=== PATIENT | female | born 1990 | race African-American/Black ===

== ENCOUNTER 2017-12-10 03:13 | Emergency (ER) | payer BC, OTHER ==
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
[2017-12-10 03:33] VITALS: BP 124/73; PULSE 110; TEMP 98.8; BMI 22.6
[2017-12-10] MEDS ORDERED: AMOX TR/POT CLAV 875MG/125MG TABLETS (FP) PO ONE (03:35)
[2017-12-10] MEDS ORDERED: TETANUS AND DIPHTHERIA TOXOID 0.5 ML DISP.SYRIN IM ONE (03:35)
[2017-12-10] MEDS ORDERED: AMOX TR/POT CLAV 875MG/125MG TABLETS (FP) ONE (03:43)
[2017-12-10] MEDS ORDERED: LIDOCAINE HCL 2% (20ML MULTI-DOSE VIAL) NR ONE (04:00)
== END 2017-12-10 04:44 | disposition home or self-care (01) ==
LOC: JER 03:13
PROC: 3E0234Z Introduction of Serum, Toxoid and Vaccine into Muscle, Percutaneous Approach (ICD-10-PCS; principal; 2017-12-10)
DX: S61.051A Open bite of right thumb without damage to nail, initial encounter (principal); Y04.1XXA Assault by human bite, initial encounter; Y93.89 Activity, other specified; Y92.89 Other specified places as the place of occurrence of the external cause
CPT/HCPCS: 99281-25

== ENCOUNTER 2018-04-13 04:09 | Emergency (ER) | payer BC ==
[2018-04-13 04:33] VITALS: BMI 25.0
--- NOTE | 2018-04-13 04:46 | PDOC ---
History of Present Illness - General History Source: Patient - History of Present Illness Initial Comments: 04/13/18 05:05 The patient is a 27 year old female, with a significant past medical history of opiate dependence, seizure (1 episode 2 years ago due to withdrawal in the past) , who presents to the emergency department with, withdrawal symptoms for 3 days. As per patient, she quit opiates 3 days ago and has since been experiencing nausea, vomiting, diarrhea, and diffuse body aches. She reports associated headache and dizziness. She reports similar symptoms in the past when trying to quit opiates. She is worried of a repeat seizure due to withdrawal. She denies recent constipation. She denies recent dysuria, frequency, urgency or hematuria. She denies recent chest pain or shortness of breath. Past surgical history: Hip surgery. Social history: Opiate depence. Primary Care Physician: Dr. Jeff Bowden <Tanvi Davis - Last Filed: 04/13/18 05:10> - General History Source: Patient <Yohan Phillip - Last Filed: 04/13/18 06:58> - General Chief Complaint: Nausea/Vomiting Stated Complaint: VOMITING/STOMACH PAIN Time Seen by Provider: 04/13/18 04:11 Past History <Tanvi Davis - Last Filed: 04/13/18 05:10> - Past Medical History Anemia: No Asthma: No Cardiac Disorders: No CVA: No Diabetes: No GI Disorders: No Disorders: No HTN: No Hypercholesterolemia: No Psychiatric Problems: Yes (ANXIETY/DEPRESSION) Seizures: No - Surgical History Orthopedic Surgery: Yes (RIGHT HIP SX DUE TO PLAY INJURY IN 1999) - Suicide/Smoking/Psychosocial Hx Smoking Status: Yes Smoking History: Current every day smoker Have you smoked in the past 12 months: No Number of Cigarettes Smoked Daily: 5 Information on smoking cessation initiated: No 'Breaking Loose' booklet given: 09/14/16 Hx Alcohol Use: No Drug/Substance Use Hx: Yes (opiates) Substance Use Type: None Hx Substance Use Treatment: Yes (left tx at [facility] in [place] in May) <Yohan Phillip - Last Filed: 04/13/18 06:58> - Past Medical History Allergies/Adverse Reactions: Allergies Allergy/AdvReac Type Severity Reaction Status Date / Time dextromethorphan Hbr Allergy Swelling Verified 04/13/18 04:31 [From NyQuil] doxylamine [From NyQuil] Allergy Swelling Verified 04/13/18 04:31 pseudoephedrine HCl Allergy Swelling Verified 04/13/18 04:31 [From NyQuil] Home Medications: Ambulatory Orders Ondansetron [Zofran *Odt*] 4 mg SL TID #30 od.tablet 04/13/18 Review of Systems - Review of Systems Able to Perform ROS?: Yes Comments:: 04/13/18 05:05 CONSTITUTIONAL: Present: Diffuse body aches. EYES: Absent: visual changes ENT: Absent: ear pain, no sore throat CARDIOVASCULAR: Absent: chest pain, no palpitations RESPIRATORY: Absent: cough, no SOB GI: Present: Nausea. Vomiting. Diarrhea. Absent: abdominal pain, no constipation GENITOURINARY: Absent: dysuria, no frequency, no hematuria MUSKULOSKELETAL: Absent: back pain, no arthralgia, no myalgia SKIN: Absent: rash NEURO: Present: headache, dizziness. All Other Systems: Reviewed and Negative <Tanvi Davis - Last Filed: 04/13/18 05:10> *Physical Exam - Vital Signs Last Vital Signs Temp Pulse Resp BP Pulse Ox 98.3 F 75 20 115/72 100 04/13/18 04:31 04/13/18 04:31 04/13/18 04:31 04/13/18 04:31 04/13/18 04:31 - Physical Exam Comments: 04/13/18 05:05 +GENERAL: Piloerection exam. Well developed, well nourished. Awake and alert. No acute distress. HEENT: Normocephalic, atraumatic. PERRLA, EOMI. No conjunctival pallor. Sclera are non- icteric. Moist mucous membranes. Oropharynx is clear. NECK: Supple. Full ROM. No JVD. Carotid pulses 2+ and symmetric, without bruits. No thyromegaly. No lymphadenopathy. CARDIOVASCULAR: Regular rate and rhythm. No murmurs, rubs, or gallops. Distal pulses are 2+ and symmetric. PULMONARY: No evidence of respiratory distress. Lungs clear to auscultation bilaterally. No wheezing, rales or rhonchi. +ABDOMINAL: Diffuse tenderness. Soft. Non-distended. No rebound or guarding. No organomegaly. Normoactive bowel sounds. MUSCULOSKELETAL Normal range of motion at all joints. No bony deformities or tenderness. No CVA tenderness. EXTREMITIES: No cyanosis. No clubbing. No edema. No calf tenderness. SKIN: Warm and dry. Normal capillary refill. No rashes. No jaundice. NEUROLOGICAL: Alert, awake, appropriate. Cranial nerves 2-12 intact. No deficits to light touch and temperature in face, upper extremities and lower extremities. No motor deficits in the in face, upper extremities and lower extremities. Normoreflexic in the upper and lower extremities. Normal speech. Toes are down- going bilaterally. Gait is normal without ataxia. PSYCHIATRIC: Cooperative. Good eye contact. Appropriate mood and affect. <Tanvi Davis - Last Filed: 04/13/18 05:10> - Vital Signs Last Vital Signs Temp Pulse Resp BP Pulse Ox 98.3 F 75 20 115/72 100 04/13/18 04:31 04/13/18 04:31 04/13/18 04:31 04/13/18 04:31 04/13/18 04:31 <Yohan Phillip - Last Filed: 04/13/18 06:58> ED Treatment Course - LABORATORY CBC & Chemistry Diagram: 04/13/18 05:22 04/13/18 05:16 <Yohan Phillip - Last Filed: 04/13/18 06:58> *DC/Admit/Observation/Transfer - Attestations Scribe Attestion: 04/13/18 05:06 Documentation prepared by Tanvi Davis, acting as medical record librarians teacher for Yohan Phillip DO. <Tanvi Davis - Last Filed: 04/13/18 05:10> - Discharge Dispostion Decision to Admit order: No <Yohan Phillip - Last Filed: 04/13/18 06:58> Diagnosis at time of Disposition: Nausea & vomiting Qualifiers: Vomiting type: unspecified Vomiting Intractability: unspecified Qualified Code( s): R11.2 - Nausea with vomiting, unspecified - Discharge Dispostion Disposition: HOME Condition at time of disposition: Stable - Prescriptions Prescriptions: Ondansetron [Zofran *Odt*] 4 mg SL TID #30 od.tablet - Referrals Referrals: Jeff Bowden [Primary Care Provider] - - Patient Instructions Printed Discharge Instructions: DI for Nausea -- Adult, DI for Vomiting -- Adult Additional Instructions: drink plenty of fluids. Use medication as needed. Return if any problems. - Post Discharge Activity Forms/Work/School Notes: Back to Work
[2018-04-13] MEDS ORDERED: ONDANSETRON 4 MG/2 ML VIAL IVPUSH STA (04:51)
[2018-04-13] MEDS ORDERED: PANTOPRAZOLE SODIUM 40 MG in SODIUM CHLORIDE 100 ML IVPB ONE (04:51)
[2018-04-13] MEDS ORDERED: SODIUM CHLORIDE 1,000 ML IV STA ×2 (04:51→06:20)
[2018-04-13] MEDS ORDERED: PANTOPRAZOLE SODIUM 40 MG/100 ML BAG IVPB ONE (04:58)
[2018-04-13] MEDS ORDERED: ONDANSETRON 4 MG/2 ML VIAL ONE (04:58)
[2018-04-13 05:28] LABS: BASO % 0.4 % (0-2.0); EOS % 0.6 % (0-4.5); HEMATOCRIT 37.1 % (32.4-45.2); HEMOGLOBIN 12.7 GM/dL (10.7-15.3); LYMPH % 41.8 % (8-40); MCH 32.7 pg (25.7-33.7); MCHC 34.1 g/dl (32.0-36.0); MEAN CELL VOLUME 95.7 fl (80-96); MEAN PLT VOLUME 7.7 fl (7.5-11.1); MONO % 8.1 % (3.8-10.2); NEUT % 49.1 % (42.8-82.8); PLATELET COUNT 239 K/MM3 (134-434); RBC 3.88 M/mm3 (3.60-5.2); RDW 12.6 % (11.6-15.6); WHITE BLOOD COUNT 6.9 K/mm3 (4.0-10.0)
[2018-04-13 05:40] LABS: INR 1.01 (0.82-1.09); PROTHROMBIN TIME (PATIENT) 11.4 SEC (9.7-13.0)
[2018-04-13 05:49] LABS: ALBUMIN 3.4 g/dl (3.4-5.0); ALK PHOS 65 U/L (45-117); ANION GAP 7 (8-16); BILIRUBIN,TOTAL 0.5 mg/dL (0.2-1.0); BLOOD UREA NITROGEN 12 mg/dL (7-18); CALCIUM 8.7 mg/dL (8.5-10.1); CHLORIDE 109 mmol/L (98-107); CO2 26 mmol/L (21-32); CREATININE 0.5 mg/dL (0.55-1.02); GLUCOSE,RANDOM 96 mg/dL (74-106); LIPASE 229 U/L (73-393); MAGNESIUM 2.1 mg/dL (1.8-2.4); POTASSIUM 3.9 mmol/L (3.5-5.1); SGOT/AST 10 U/L (15-37); SGPT/ALT 22 U/L (12-78); SODIUM 142 mmol/L (136-145); TOT PROT 6.5 g/dl (6.4-8.2)
[2018-04-13] MEDS ORDERED: METHADONE HCL 10 MG TABLET PO ONE (06:13)
[2018-04-13] MEDS ORDERED: METHADONE HCL 10 MG TABLET ONE (06:14)
[2018-04-13 07:02] VITALS: BP 145/98; PULSE 72; TEMP 98.4
== END 2018-04-13 08:41 | disposition home or self-care (01) ==
LOC: JER 04:09
PROC: 3E0337Z Introduction of Electrolytic and Water Balance Substance into Peripheral Vein, Percutaneous Approach (ICD-10-PCS; principal; 2018-04-13)
PROC: 3E033GC Introduction of Other Therapeutic Substance into Peripheral Vein, Percutaneous Approach (ICD-10-PCS; 2018-04-13)
DX: R11.2 Nausea with vomiting, unspecified (principal); F11.10 Opioid abuse, uncomplicated; F41.8 Other specified anxiety disorders; F17.210 Nicotine dependence, cigarettes, uncomplicated; Z86.69 Personal history of other diseases of the nervous system and sense organs
CPT/HCPCS: 36415; 80053; 83690; 83735; 84703; 85025; 85610; 99283-25; J7030

== ENCOUNTER 2018-07-07 03:52 | Emergency (ER) | payer BC ==
[2018-07-07] MEDS ORDERED: METOCLOPRAMIDE HCL INJECTION 10 MG/2 ML VIAL IVPUSH ONE (04:15)
[2018-07-07] MEDS ORDERED: SODIUM CHLORIDE 1,000 ML IV STA (04:15)
--- NOTE | 2018-07-07 04:15 | PDOC ---
History of Present Illness - General Stated Complaint: OPIATES WITHDRAWAL Time Seen by Provider: 07/07/18 04:12 History Source: Patient Exam Limitations: No Limitations - History of Present Illness Initial Comments: 07/07/18 04:03 Best Contact: PCP:Dr. Guille Bowden Pmhx: 2016: sz "from heroin" Pshx: right hip dysplasia sx @ age 9 Allergies: Nyquil/swelling FH:0 Social Hx: Cigarettes/ 4-5 cigarettes a day x12 years Alcohol/ social Drugs/heroin, cocaine, marijuana LMP:Jun 10, 2018 28-year-old female presents to the emergency department complaining of nausea 3 hours. Patient states she last noted heroin followed by cocaine and smoked marijuana 9 hours ago. Patient denies headache, dizziness, lightheadedness, fever/chills, general malaise, pain, neck pain/stiffness, back pains, chest pain , shortness of breath, abdominal pains, flank pains, urinary symptoms. Patient states she has relapsed last evening since 1 month ago. Patient reports she first started using opiates, cocaine and marijuana 4 years ago. Patient has been hospitalized in February of this year/2017 at for [facility] and was clean for approximately 4 months. Patient states she refuses to go to [facility]. She only wants something for her nausea. Patient denies diarrhea, vomiting, nausea, sweating, restlessness, anxiety, cramping abdominal pains, insomnia or tremor Pt refuses anything except anti nausea medication. Pt refuses transfer to [facility] for detox. 07/07/18 04:58 Pt refuses to stay in the ER after the reglan 10mg iv. Pt states she wishes to be d/c and will sign an ama. Pt's mother states she will accompany her daughter and take care of her. Pt and her mother was informed pt needs to come to the ER for for any cp, sob, abd pain, n/v or any concerns. Past History - Past Medical History Allergies/Adverse Reactions: Allergies Allergy/AdvReac Type Severity Reaction Status Date / Time dextromethorphan Hbr Allergy Swelling Verified 07/07/18 04:42 [From NyQuil] doxylamine [From NyQuil] Allergy Swelling Verified 07/07/18 04:42 pseudoephedrine HCl Allergy Swelling Verified 07/07/18 04:42 [From [facility]] Home Medications: Ambulatory Orders NK [No Known Home Medication] 07/07/18 Anemia: No Asthma: No Cardiac Disorders: No CVA: No Diabetes: No GI Disorders: No Disorders: No HTN: No Hypercholesterolemia: No Psychiatric Problems: Yes (ANXIETY/DEPRESSION) Seizures: No - Surgical History Orthopedic Surgery: Yes (RIGHT HIP SX DUE TO PLAY INJURY IN 1999) - Suicide/Smoking/Psychosocial Hx Smoking Status: Yes Smoking History: Current every day smoker Have you smoked in the past 12 months: No Number of Cigarettes Smoked Daily: 5 'Breaking Loose' booklet given: 09/14/16 Hx Alcohol Use: No Drug/Substance Use Hx: Yes (opiates) Substance Use Type: None Hx Substance Use Treatment: Yes (left tx at [facility] in [place] in May) Review of Systems - Review of Systems Able to Perform ROS?: Yes Comments:: 07/07/18 04:41 CONSTITUTIONAL: Absent: fever, chills, diaphoresis, generalized weakness, malaise, loss of appetite HEENT: Absent: rhinorrhea, nasal congestion, throat pain, throat swelling, difficulty swallowing, mouth swelling, ear pain, eye pain, visual Changes CARDIOVASCULAR: Absent: chest pain, loss of consciousness, palpitations, irregular heart rate, peripheral edema RESPIRATORY: Absent: cough, shortness of breath, dyspnea with exertion, orthopnea, wheezing, stridor, hemoptysis GASTROINTESTINAL: +nausea Absent: abdominal pain, abdominal distension, omiting, diarrhea, constipation, melena, hematochezia GENITOURINARY: Absent: dysuria, frequency, urgency, hesitancy, hematuria, flank pain, genital pain MUSCULOSKELETAL: Absent: myalgia, arthralgia, joint swelling SKIN: Absent: rash, itching, pallor HEMATOLOGIC/IMMUNOLOGIC: Absent: easy bleeding, easy bruising, lymphadenopathy, frequent infections ENDOCRINE: Absent: unexplained weight gain, unexplained weight loss, heat intolerance, cold intolerance NEUROLOGIC: Absent: headache, focal weakness or paresthesias, dizziness, unsteady gait, seizure, mental status changes, bladder or bowel incontinence PSYCHIATRIC: Absent: anxiety, depression, suicidal or homicidal ideation, hallucinations. GENERAL: Well developed, well nourished. Awake and alert. No acute distress. HEENT: Normocephalic, atraumatic. PERRLA, EOMI. No conjunctival pallor. Sclera are non- icteric. Moist mucous membranes. Oropharynx is clear. NECK: Supple. Full ROM. No JVD. Carotid pulses 2+ and symmetric, without bruits. No thyromegaly. No lymphadenopathy. CARDIOVASCULAR: Regular rate and rhythm. No murmurs, rubs, or gallops. Distal pulses are 2+ and symmetric. PULMONARY: No evidence of respiratory distress. Lungs clear to auscultation bilaterally. No wheezing, rales or rhonchi. ABDOMINAL: Soft. Non-tender. Non-distended. No rebound or guarding. No organomegaly. Normoactive bowel sounds. MUSCULOSKELETAL Normal range of motion at all joints. No bony deformities or tenderness. No CVA tenderness. EXTREMITIES: No cyanosis. No clubbing. No edema. No calf tenderness. SKIN: Warm and dry. Normal capillary refill. No rashes. No jaundice. NEUROLOGICAL: Alert, awake, appropriate. Cranial nerves 2-12 intact. No deficits to light touch and temperature in face, upper extremities and lower extremities. No motor deficits in the in face, upper extremities and lower extremities. Normoreflexic in the upper and lower extremities. Normal speech. Toes are down- going bilaterally. Gait is normal without ataxia. PSYCHIATRIC: Cooperative. Good eye contact. Appropriate mood and affect. Is the patient limited Mongolian proficient: No *DC/Admit/Observation/Transfer Diagnosis at time of Disposition: Heroin dependence - Discharge Dispostion Disposition: AGAINST MEDICAL ADVICE Condition at time of disposition: Fair - Referrals Referrals: Jeff Bowden [Primary Care Provider] - - Patient Instructions Additional Instructions: You signed out Against medical advice Return to the Er for chest pain, shortness of breath, abdominal pain or any concerns - Post Discharge Activity
[2018-07-07 04:43] VITALS: BP 133/90; PULSE 84; TEMP 98.3; BMI 22.6
[2018-07-07] MEDS ORDERED: METOCLOPRAMIDE HCL INJECTION 10 MG/2 ML VIAL ONE (04:54)
== END 2018-07-07 06:00 | disposition left against medical advice (07) ==
LOC: JER 03:52
PROC: 3E033GC Introduction of Other Therapeutic Substance into Peripheral Vein, Percutaneous Approach (ICD-10-PCS; principal; 2018-07-07)
DX: F11.20 Opioid dependence, uncomplicated (principal); F41.9 Anxiety disorder, unspecified; F32.9 Major depressive disorder, single episode, unspecified
CPT/HCPCS: 99281-25

== ENCOUNTER 2019-02-26 12:07 | Emergency (ER) | payer BC, OTHER ==
[2019-02-26 12:22] VITALS: BP 118/70; PULSE 78; TEMP 98.2; BMI 23.3
--- NOTE | 2019-02-26 14:34 | PDOC ---
History of Present Illness - General Chief Complaint: Pain, Acute Stated Complaint: LT. KNEE PAIN/ NUMBING TOES Time Seen by Provider: 02/26/19 14:14 Exam Limitations: No Limitations - History of Present Illness Initial Comments: 02/26/19 14:34 28 year old female with history of right hip surgery presents with pain and swelling of left knee. Patient states pain started Monday, recall accidentally hitting knee with car door. Also reports numbness in toes of the same leg. Pain exacerbated by weight bearing. Occurred: reports: other (3 days ago) Severity: Yes: moderate Lower Extremity Pain Location: left: knee Method of Injury: Yes: direct blow Modifying Factors: improves with: immobilization, pain medication Lower Ext. Injury Location - Specific Injury Location Hips: bilateral hip: no evidence of injury Legs: bilateral: normal inspection Knees: right non-tender, left soft tissue tenderness, left swelling, left pain Ankle: bilateral no evidence of injury Foot: bilateral foot no evidence of injury Extremity Pain Location - Extremity Pain Location Extremity Pain Locations: left: knee Past History - Travel Traveled outside of the country in the last 30 days: No Close contact w/someone who was outside of country & ill: No - Past Medical History Allergies/Adverse Reactions: Allergies Allergy/AdvReac Type Severity Reaction Status Date / Time dextromethorphan Hbr Allergy Swelling Verified 02/26/19 14:31 [From NyQuil] doxylamine [From NyQuil] Allergy Swelling Verified 02/26/19 14:31 pseudoephedrine HCl Allergy Swelling Verified 02/26/19 14:31 [From NyQuil] Home Medications: Ambulatory Orders Ibuprofen 600 mg PO TID #20 tablet 02/26/19 Anemia: No Asthma: No Cardiac Disorders: No CVA: No COPD: No Diabetes: No GI Disorders: No Disorders: No HTN: No Hypercholesterolemia: No Psychiatric Problems: Yes (ANXIETY/DEPRESSION) Seizures: No - Surgical History Orthopedic Surgery: Yes (RIGHT HIP SX DUE TO PLAY INJURY IN 1999) - Suicide/Smoking/Psychosocial Hx Smoking Status: Yes Smoking History: Never smoked Have you smoked in the past 12 months: No Number of Cigarettes Smoked Daily: 5 Information on smoking cessation initiated: No 'Breaking Loose' booklet given: 09/14/16 Hx Alcohol Use: No Drug/Substance Use Hx: No Substance Use Type: None Hx Substance Use Treatment: Yes (left tx at [facility] in [place]. in May) Review of Systems - Review of Systems Able to Perform ROS?: Yes Is the patient limited Kyrgyz proficient: No Constitutional: No: Chills, Fever, Weakness HEENTM: No: Nose Congestion, Throat Swelling Respiratory: No: Wheezing Cardiac (ROS): No: Lightheadedness, Palpitations ABD/GI: No: Constipated, Diarrhea : No: Burning, Hematuria Musculoskeletal: Yes: Joint Pain, Joint Swelling Integumentary: No: Bruising, Erythema Neurological: Yes: Numbness (in left toes) Psychiatric: No: Depression Endocrine: No: Increased Hunger, Increased Urine *Physical Exam - Vital Signs Last Vital Signs Temp Pulse Resp BP Pulse Ox 98.2 F 78 18 118/70 98 02/26/19 12:19 02/26/19 12:19 02/26/19 12:19 02/26/19 12:19 02/26/19 12:19 - Physical Exam General Appearance: Yes: Nourished, Appropriately Dressed HEENT: positive: INGE, Pharynx Normal Neck: positive: Supple. negative: Lymphadenopathy (R), Lymphadenopathy (L) Respiratory/Chest: positive: Lungs Clear Cardiovascular: positive: Regular Rhythm, Regular Rate Musculoskeletal: positive: Normal Inspection Extremity: positive: Normal Capillary Refill, Inflammation (of left knee ) Integumentary: positive: Normal Color Neurologic: positive: Fully Oriented Medical Decision Making - Medical Decision Making 02/26/19 14:38 28 year old with history of right hip surgery presents with left knee pain and swelling after accidentally injured by car door. knee pain -urine -xray of left knee -analgesia 02/26/19 16:34 xray negative for fracture or dislocation d/c home with brittni wrap *DC/Admit/Observation/Transfer Diagnosis at time of Disposition: Knee injury Qualifiers: Encounter type: initial encounter Laterality: left Qualified Code(s): S89.92XA - Unspecified injury of left lower leg, initial encounter - Discharge Dispostion Condition at time of disposition: Good Decision to Admit order: No - Prescriptions Prescriptions: Ibuprofen 600 mg PO TID #20 tablet - Referrals Referrals: Milan Suresh MD [Staff Physician] - 3 days - Patient Instructions Additional Instructions: Apply ice compress for 20 minutes 3 to 4 times daily Remove brittni wrap for sleeping and showering Call ortho if symptoms not resolved in one week for further evaluation - Post Discharge Activity Forms/Work/School Notes: Back to Work
== END 2019-02-26 16:49 | disposition home or self-care (01) ==
LOC: JERFT 12:07
DX: S89.82XA Other specified injuries of left lower leg, initial encounter (principal); V48.3XXA Unspecified car occupant injured in noncollision transport accident in nontraffic accident, initial encounter; Y92.488 Other paved roadways as the place of occurrence of the external cause; Y93.89 Activity, other specified; Y99.8 Other external cause status
CPT/HCPCS: 73562-TC-LT-FY; 84703; 99281-25

== ENCOUNTER 2019-11-07 15:58 | Inpatient (IN) | payer OTHER, BC ==
[2019-11-07 17:30] VITALS: BMI 21.9
--- NOTE | 2019-11-07 20:08 | HP ---
COWS - Scale Resting Pulse: 0= [place] 80 or Below Sweatin= Chills/Flushing Restless Observation: 1= Difficult to Sit Still Pupil Size: 0= Normal to Room Light Bone or Joint Aches: 2= Severe Diffuse Aches Runny Nose/ Eye Tearin= None GI Upset > 30mins: 1= Stomach Cramp Tremor Observation: 2= Slight Tremor Visible Yawning Observation: 1= 1-2x During Session Anxiety or Irritability: 2=Irritable/Anxious Goose Flesh Skin: 0=Smooth Skin COWS Score: 10 CIWA Score - Admission Criteria OASAS Guidelines: Admission for Medically Managed Detox: Requires at least one of the followin. CIWA greater than 12 2. Seizures within the past 24 hours 3. Delirium tremens within the past 24 hours 4. Hallucinations within the past 24 hours 5. Acute intervention needed for co occurring medical disorder 6. Acute intervention needed for co occurring psychiatric disorder 7. Severe withdrawal that cannot be handled at a lower level of care (continued vomiting, continued diarrhea, abnormal vital signs) requiring intravenous medication and/or fluids 8. Admitting History and Physical - Admission Chief Complaint: "I'm here for heroin detox". History of Present Illness: A 29year old female with history of heroin and cannabis use disorder who presents here today requesting for heroin detox. Pt last detox here was on 2014 to 05/30/2015 but signed AMA and went to [facility] rehab but relapsed after one and a half years due to bad friends. Pt states attempts to remain sober has failed but plans to go to rehab after discharge. History Source: Patient Limitations to Obtaining History: No Limitations - Past Medical History ...LMP: 10/12/19 Psych: Yes: Addictions, Anxiety, Depression - Smoking History Smoking history: Never smoked Have you smoked in the past 12 months: No Aproximately how many cigarettes per day: 10 - Alcohol/Substance Use Hx Alcohol Use: No History of Substance Use: reports: Cocaine, Heroin - Social History Usual Living Arrangement: Yes: Other (Lives with her mother.) Do you think of yourself as: Straight/Heterosexual ADL: Independent History of Recent Travel: No Admission ROS BHS - HPI Allergies/Adverse Reactions: Allergies Allergy/AdvReac Type Severity Reaction Status Date / Time dextromethorphan Hbr Allergy Swelling Verified 11/07/19 17:17 [From NyQuil] doxylamine [From NyQuil] Allergy Swelling Verified 11/07/19 17:17 pseudoephedrine HCl Allergy Swelling Verified 11/07/19 17:17 [From NyQuil] Exam Limitations: No Limitations - Ebola screening Have you traveled outside of the country in the last 21 days: No Have you had contact with anyone from an Ebola affected area: No Have you been sick,other than usual withdrawal symptoms: No Do you have a fever: No - Review of Systems Constitutional: Chills, Loss of Appetite, Night Sweats EENT: reports: No Symptoms Reported Respiratory: reports: No Symptoms reported Cardiac: reports: No Symptoms Reported GI: reports: Poor Appetite Musculoskeletal: reports: Back Pain, Muscle Pain Integumentary: reports: Other Neuro: reports: Headache, Tremors Endocrine: reports: No Symptoms Reported Hematology: reports: No Symptoms Reported Psychiatric: reports: Mood/Affect Appropiate, Anxious Other Systems: Reviewed and Negative Patient History - Patient Medical History Hx Anemia: No Hx Asthma: No Hx Chronic Obstructive Pulmonary Disease (COPD): No Hx Cardiac Disorders: No Hx Hypertension: No Hx Hypercholesterolemia: No HX Cerebrovascular Accident: No Hx Seizures: No Hx Diabetes: No Hx Gastrointestinal Disorders: No Hx Genitourinary Disorders: No Hx Sexually Transmitted Disorders: Yes (CHLAMYDIA HX) Hx Human Immunodeficiency Virus (HIV): No (NEGATIVE HX) Hx Hepatitis C: No Hx Depression: Yes Hx Suicide Attempt: Yes (PILLS IN 2011) - Patient Surgical History Past Surgical History: Yes Hx Orthopedic Surgery: Yes (RIGHT HIP SX DUE TO PLAY INJURY IN 1999) Anesthesia Reaction: No - PPD History Previous Implant?: Yes (pt states, she had ppd shot december,) Documented Results: Negative w/proof Date: 05/31/15 PPD to be Administered?: No - Reproductive History Patient is a Female of Child Bearing Age (11 -55 yrs old): Yes Last Menstrual Period: 10/12/19 Patient : No - Smoking Cessation Smoking history: Never smoked Have you smoked in the past 12 months: No Aproximately how many cigarettes per day: 10 Hx Chewing Tobacco Use: No Initiated information on smoking cessation: Yes 'Breaking Loose' booklet given: 11/07/19 - Substance & Tx. History Hx Alcohol Use: No Hx Substance Use: Yes Substance Use Type: Heroin Hx Substance Use Treatment: No - Substances abused Heroin Substance route: Inhalation Frequency: Daily Amount used: 5 bags Age of first use: 25 Date of last use: 11/07/19 Alcohol Substance route: Oral Frequency: No use in 30 days Amount used: 3 cups of liqour Age of first use: 14 Date of last use: 10/08/19 Admission Physical Exam [facility] - Vital Signs Vital Signs: Vital Signs - 24 hr 11/07/19 17:17 Temperature 97.6 F Pulse Rate 73 Respiratory 16 Rate Blood Pressure 118/78 - Physical General Appearance: Yes: No Apparent Distress, Tremorous, Irritable, Sweating, Anxious HEENTM: Yes: EOMI, Hearing grossly Normal, INGE, Pharynx Normal Respiratory: Yes: Chest Non-Tender, Lungs Clear, No Respiratory Distress Neck: Yes: No masses,lesions,Nodules, Trachea in good position Breast: Yes: Breast Exam Deferred Cardiology: Yes: Regular Rhythm, Regular Rate, S1, S2 Abdominal: Yes: Normal Bowel Sounds, Non Tender, Flat, Soft Genitourinary: Yes: Within Normal Limits Back: Yes: Normal Inspection Musculoskeletal: Yes: full range of Motion, Gait Steady Extremities: Yes: Normal Capillary Refill, Normal Range of Motion, Non-Tender, Tremors Neurological: Yes: Alert, Motor Strength 5/5, Normal Mood/Affect, Normal Response Integumentary: Yes: Dry, Warm Lymphatic: Yes: Within Normal Limits - Diagnostic (1) Anxiety disorder Current Visit: No Status: Chronic (2) Cannabis dependence Current Visit: No Status: Acute (3) Cocaine abuse Current Visit: No Status: Acute (4) Heroin dependence Current Visit: No Status: Acute (5) Knee injury Current Visit: No Status: Acute Qualifiers: Encounter type: initial encounter Laterality: left Qualified Code(s): S89.92XA - Unspecified injury of left lower leg, initial encounter (6) Opiate use Current Visit: No Status: Chronic (7) Opioid dependence with withdrawal Current Visit: No Status: Acute (8) Depression with anxiety Current Visit: No Status: Chronic Cleared for Admission [facility] - Detox or Rehab [facility] Level of Care: Medically Managed Detox Regimen/Protocol: Methadone Claeared for Rehab Admission: No Breathalyzer - Breathalyzer Breathalyzer: 0 Urine Drug Screen - Test Device Lot number: [id number] Expiration date: 09/07/21 - Control Is test valid?: Yes - Results Drug screen NEGATIVE: No Urine drug screen results: THC-Marijuana, GONZALES-Cocaine, MOP-Opiates, BZO- Benzodiazepines Inpatient Rehab Admission - Rehab Decision to Admit Inpatient rehab admission?: No
[2019-11-07] MEDS ORDERED: MAGNESIUM HYDROX 2400MG/30ML ORAL SUSPENSION 30 ML CUP PO PRN (20:37)
[2019-11-07] MEDS ORDERED: MAG HYDROX/AL HYDROX/SIMETH 30 ML UNIT-DOSE CUP PO PRN (20:37)
[2019-11-07] MEDS ORDERED: BISMUTH SUBSALICYLATE 524 MG/30 ML UD PO PRN (20:37)
[2019-11-07] MEDS ORDERED: guaiFENesin 200 MG/10 ML 10 ML UNIT-DOSE CUPS PO PRN (20:37)
[2019-11-07] MEDS ORDERED: PROCHLORPERAZINE MALEATE 5 MG TABLET PO PRN (20:37)
[2019-11-07] MEDS ORDERED: MENTHOL/PHENOL 1 EACH UD MM PRN (20:37)
[2019-11-07] MEDS ORDERED: MAGNESIUM CITRATE 300 ML BOTTLE PO PRN (20:37)
[2019-11-07] MEDS ORDERED: IBUPROFEN 400 MG TABLET (FP) PO PRN (20:37)
[2019-11-07] MEDS ORDERED: ACETAMINOPHEN 325 MG TABLET (FP) PO PRN ×2 (20:37)
[2019-11-07] MEDS ORDERED: METHADONE HCL 10 MG TABLET (FOR DETOX USE ONLY) PO ONE (20:46)
[2019-11-07] MEDS: THIAMINE HCL 100 MG TABLET (FP) PO SCH (21:21)
[2019-11-07] MEDS: cloNIDine HCL 0.1 MG TABLET PO PRN (21:21)
[2019-11-08] MEDS: METHOCARBAMOL 500 MG TABLET PO PRN (09:56)
[2019-11-08] MEDS: cloNIDine HCL 0.1 MG TABLET PO PRN (09:56)
[2019-11-08] MEDS: PRENATAL VITAMINS W/ FOLIC ACID TABLET (FP) PO SCH (09:56)
[2019-11-08] MEDS ORDERED: METHADONE HCL 5 MG TABLET (FOR DETOX USE ONLY) PO ONE (10:00)
[2019-11-08 10:21] LABS: HEMATOCRIT 33.4 % (32.4-45.2); HEMOGLOBIN 11.7 GM/dL (10.7-15.3); MCH 33.6 pg (25.7-33.7); MEAN PLT VOLUME 7.9 fl (7.5-11.1); PLATELET COUNT 236 K/MM3 (134-434); RBC 3.48 M/mm3 (3.60-5.2); RDW 12.5 % (11.6-15.6); WHITE BLOOD COUNT 4.3 K/mm3 (4.0-10.0)
[2019-11-08 10:28] LABS: ALBUMIN 3.3 g/dl (3.4-5.0); BILIRUBIN,TOTAL 0.5 mg/dL (0.2-1); BLOOD UREA NITROGEN 8.6 mg/dL (7-18); CREATININE 0.6 mg/dL (0.55-1.3); POTASSIUM 4.2 mmol/L (3.5-5.1); TOT PROT 6.1 g/dl (6.4-8.2)
--- NOTE | 2019-11-08 12:35 | PN ---
BHS COWS - Scale Resting Pulse: 0= [place] 80 or Below Sweatin=Flushed/Facial Moisture Restless Observation: 1= Difficult to Sit Still Pupil Size: 0= Normal to Room Light Bone or Joint Aches: 1= Mild Discomfort Runny Nose/ Eye Tearin= Nasal Congestion GI Upset > 30mins: 0= None Tremor Observation of Outstretched Hands: 2= Slight Tremor Visible Yawning Observation: 0= None Anxiety or Irritability: 2=Irritable/Anxious Goose Flesh Skin: 0=Smooth Skin COWS Score: 9 BHS Progress Note (SOAP) Subjective: Patient seen in community room watching TV. Complains of restlessness and poor sleep. Objective: 11/08/19 12:32 Vitals: BP:131/93 P:63 R:16 T:98.0 Laboratory 11/07/19 11/08/19 11/08/19 18:55 08:30 08:30 WBC 4.3 K/mm3 K/mm3 (4.0-10.0) RBC 3.48 M/mm3 L M/mm3 (3.60-5.2) Hgb 11.7 GM/dL GM/dL (10.7-15.3) Hct 33.4 % % (32.4-45.2) MCV 96.0 fl fl (80-96) MCH 33.6 pg pg (25.7-33.7) MCHC 35.0 g/dl g/dl (32.0-36.0) RDW 12.5 % % (11.6-15.6) Plt Count 236 K/MM3 K/MM3 (134-434) MPV 7.9 fl fl (7.5-11.1) Sodium 143 mmol/L mmol/L (136-145) Potassium 4.2 mmol/L mmol/L (3.5-5.1) Chloride 109 mmol/L H mmol/L (98-107) Carbon Dioxide 29 mmol/L mmol/L (21-32) Anion Gap 5 MMOL/L L MMOL/L (8-16) BUN 8.6 mg/dL mg/dL (7-18) Creatinine 0.6 mg/dL mg/dL (0.55-1.3) Est GFR (CKD-EPI)AfAm 140.77 Est GFR (CKD-EPI)NonAf 121.46 Random Glucose 80 mg/dL mg/dL (74-106) Calcium 9.0 mg/dL mg/dL (8.5-10.1) Total Bilirubin 0.5 mg/dL mg/dL (0.2-1) AST 12 U/L L U/L (15-37) ALT 25 U/L U/L (13-61) Alkaline Phosphatase 68 U/L U/L (45-117) Total Protein 6.1 g/dl L g/dl (6.4-8.2) Albumin 3.3 g/dl L g/dl (3.4-5.0) POC Urine HCG, Qual Negative Assessment: 11/08/19 12:33 1. Opioid Dependence with withdrawals 2. Abnormalities in labs noted Plan: 1. Continue methadone detox protocol. Encourage hydration 2. Labs consistent with poor nutrition and probably dehydration and vomitting from withdrawals. Dr. Carnes
--- NOTE | 2019-11-08 12:46 | EKG ---
Test Reason : Blood Pressure : / mmHG Vent. Rate : 057 BPM Atrial Rate : 057 BPM P-R Int : 164 ms QRS Dur : 080 ms QT Int : 432 ms P-R-T Axes : 053 047 051 degrees QTc Int : 420 ms SINUS BRADYCARDIA WITH SINUS ARRHYTHMIA WHEN COMPARED WITH ECG OF 24-SEP-2016 14:02, NO SIGNIFICANT CHANGE WAS FOUND Confirmed by BAUTISTA ARGUELLES MD ([id number]) on 11/08/2019 12:46:50 PM Referred By: Confirmed By:BAUTISTA ARGUELLES MD
--- NOTE | 2019-11-08 14:59 | CONSULT ---
[facility] Psychiatric Consult - Data Date of interview: 11/08/19 Admission source: [facility] Identifying data: Revisit to [facility] and admission to [address] [place] [address] for this 29 y/o AA female self-referred for detoxification treatment. MARTHA issues : heroin, cannabis, nicotine. Patient is single, no dependents, omiciled, unemployed and supported by relatives. Substance Abuse History: Discussed with patient. Details in current [facility] report as follows : Aproximately how many cigarettes per day: 10. Hx Chewing Tobacco Use: No. Initiated information on smoking cessation: Yes. 'Breaking Loose' booklet given: 11/07/19. - Substance & Tx. History. Hx Alcohol Use: No. Hx Substance Use: Yes. Substance Use Type: Heroin. Hx Substance Use Treatment: No. - Substances abused. Heroin. Substance route: Inhalation. Frequency: Daily. Amount used: 5 bags. Age of first use: 25. Date of last use: . Alcohol. Substance route: Oral. Frequency: No use in 30 days. Amount used: 3 cups of liqour. Age of first use: 14. 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 Psychiatric History: Patient is a hostile, evasive and marginally cooperative historian. Ms Lyons endorses history of two psychiatric hospitalizations ([facility] in 2001 + [facility] in 2010). Reportedly diagnosed with MDD and Anxiety disorder. Patient got prescribed citalopram + clonazepam during treatment at [facility]. She reportedly lost interest in OPD care and got lost to follow-up. No current contact with psychiatric care providers at this time. Patient admits to history of two suicide attempts via overdoses with pills. Physical/Sexual Abuse/Trauma History: Not discussed in this session. Patient not cooperative enough to allow for exploration of the domain of abuse. Additional Comment: Urine drug screen results: THC-Marijuana, GONZALES-Cocaine, MOP- Opiates, BZO-Benzodiazepines. Noted. Mental Status Exam - Mental Status Exam Alert and Oriented to: Time, Place, Person Cognitive Function: Good Patient Appearance: Disheveled Mood: Hostile, Withdrawn, Irritable Affect: Mood Congruent, Constricted Patient Behavior: Fatigued, Uncooperative (marginally cooperative) Speech Pattern: Clear, Appropriate Voice Loudness: Normal Thought Process: Goal Oriented Thought Disorder: Not Present Hallucinations: Denies Suicidal Ideation: Denies Homicidal Ideation: Denies Insight/Judgement: Poor Sleep: Fair Appetite: Good Gait/Station: Other (not observed ; interview conducted at bedside) Psychiatric Findings - Problem List ([place] 1, 2,3) (1) Opioid dependence with withdrawal Current Visit: Yes Status: Acute (2) Cannabis dependence Current Visit: Yes Status: Chronic (3) Cocaine abuse Current Visit: Yes Status: Chronic (4) Nicotine dependence Current Visit: Yes Status: Chronic (5) Substance induced mood disorder Current Visit: Yes Status: Chronic (6) Anxiety disorder Current Visit: Yes Status: Chronic Comment: By history. (7) Non-compliance Current Visit: Yes Status: Chronic - Initial Treatment Plan Initial Treatment Plan: Patient came to office to complete interview initiated at bedside. She offered apologies to MD for being " less than cooperative." Patient explained that she was fatigued, tired and somewhat sleepy. Interview is conducted in the presence of counselor's dry cleaning supervisor, Leonard Velez. Psychoeducation provided to patient. Support. Sleep hygiene principles revisited. NA meetings. MAT services discussed with patient : she declines (due to side effects from suboxone experienced in the past). Patient also declines psychotropic medications other than drugs necessary for detoxification purposes. Observation.
[2019-11-08] MEDS: THIAMINE HCL 100 MG TABLET (FP) PO SCH (22:08)
[2019-11-08] MEDS: MELATONIN 5 MG TABLETS PO PRN (22:08)
[2019-11-09] MEDS ORDERED: METHADONE HCL 10 MG TABLET (FOR DETOX USE ONLY) PO ONE (10:00)
[2019-11-09] MEDS: PRENATAL VITAMINS W/ FOLIC ACID TABLET (FP) PO SCH (10:09)
[2019-11-09] MEDS ORDERED: ONDANSETRON *ODT* 4 MG TABLET SL ONE (11:45)
--- NOTE | 2019-11-09 13:33 | PN ---
S COWS - Scale Resting Pulse: 0= [place] 80 or Below Sweatin= No chills or Flushing Restless Observation: 0= Sits Still Pupil Size: 0= Normal to Room Light Bone or Joint Aches: 2= Severe Diffuse Aches Runny Nose/ Eye Tearin= None GI Upset > 30mins: 1= Stomach Cramp Tremor Observation of Outstretched Hands: 0= None Yawning Observation: 0= None Anxiety or Irritability: 2=Irritable/Anxious Goose Flesh Skin: 0=Smooth Skin COWS Score: 5 BHS Progress Note (SOAP) Subjective: c/o n/v x1 and mild withdrawal symptoms. Objective: 11/09/19 13:29 Vital Signs 11/09/19 11/09/19 06:57 08:58 Temperature 98.2 F 97.6 F Pulse Rate 69 61 Respiratory 16 16 Rate Blood Pressure 136/95 135/92 Laboratory Last Values WBC 4.3 K/mm3 (4.0-10.0) 11/08/19 08:30 RBC 3.48 M/mm3 (3.60-5.2) L 11/08/19 08:30 Hgb 11.7 GM/dL (10.7-15.3) 11/08/19 08:30 Hct 33.4 % (32.4-45.2) 11/08/19 08:30 MCV 96.0 fl (80-96) 11/08/19 08:30 MCH 33.6 pg (25.7-33.7) 11/08/19 08:30 MCHC 35.0 g/dl (32.0-36.0) 11/08/19 08:30 RDW 12.5 % (11.6-15.6) 11/08/19 08:30 Plt Count 236 K/MM3 (134-434) 11/08/19 08:30 MPV 7.9 fl (7.5-11.1) 11/08/19 08:30 Sodium 143 mmol/L (136-145) 11/08/19 08:30 Potassium 4.2 mmol/L (3.5-5.1) 11/08/19 08:30 Chloride 109 mmol/L (98-107) H 11/08/19 08:30 Carbon Dioxide 29 mmol/L (21-32) 11/08/19 08:30 Anion Gap 5 MMOL/L (8-16) L 11/08/19 08:30 BUN 8.6 mg/dL (7-18) 11/08/19 08:30 Creatinine 0.6 mg/dL (0.55-1.3) 11/08/19 08:30 Est GFR (CKD-EPI)AfAm 140.77 11/08/19 08:30 Est GFR (CKD-EPI)NonAf 121.46 11/08/19 08:30 Random Glucose 80 mg/dL (74-106) 11/08/19 08:30 Calcium 9.0 mg/dL (8.5-10.1) 11/08/19 08:30 Total Bilirubin 0.5 mg/dL (0.2-1) 11/08/19 08:30 AST 12 U/L (15-37) L 11/08/19 08:30 ALT 25 U/L (13-61) 11/08/19 08:30 Alkaline Phosphatase 68 U/L (45-117) 11/08/19 08:30 Total Protein 6.1 g/dl (6.4-8.2) L 11/08/19 08:30 Albumin 3.3 g/dl (3.4-5.0) L 11/08/19 08:30 POC Urine HCG, Qual Negative 11/07/19 18:55 RPR Titer Nonreactive (NONREACTIVE) 11/08/19 08:30 Labs noted. Assessment: 11/09/19 13:29 AOX3, in no acute respiratory distress. Full ROM, ambulating in the unit. Mild Withdrawal symptoms. c/o n/v x1 For d/c tomorrow. 11/09/19 13:30 Plan: continue detox. Tigan 200mg IM once. D/C in AM.
[2019-11-09] MEDS ORDERED: cloNIDine HCL 0.1 MG TABLET PO ONE (14:21)
--- NOTE | 2019-11-09 15:57 | DS ---
[facility] Detox Discharge Summary Admission Date: 11/07/19 Discharge Date: 11/09/19 (Pt left AMA) - History Present History: Opioid Dependence Additional Comments: As per H&P: "A 29year old female with history of heroin and cannabis use disorder who presents here today requesting for heroin detox. Pt last detox here was on 05/29/2015 to 05/30/2015 but signed AMA and went to [facility] rehab but relapsed after one and a half years due to bad friends. Pt states attempts to remain sober has failed but plans to go to rehab after discharge". Pt left AMA. Pt still with complains of withdrawal symptoms. Pt states, "i just have to leave". Pt did not complete the detox protocol. An attempt to let pt stay and complete the detox protocol failed. Pt is encouraged to follow-up with an outpatient CD program and also to follow-up with her pmd. Pt verbalized understanding of the information given. Pt is alert and oriented x3 and in no respiratory distress. Pertinent Past History: h/o heroin use disorder. - Physical Exam Results Vital Signs: Vital Signs Temperature 97.6 F 11/09/19 13:29 Pulse Rate 57 L 11/09/19 13:29 Respiratory Rate 16 11/09/19 13:29 Blood Pressure 123/75 11/09/19 13:29 O2 Sat by Pulse Oximetry (%) Vital Signs 11/09/19 11/09/19 08:58 13:29 Temperature 97.6 F 97.6 F Pulse Rate 61 57 L Respiratory 16 16 Rate Blood Pressure 135/92 123/75 Laboratory Last Values WBC 4.3 K/mm3 (4.0-10.0) 11/08/19 08:30 RBC 3.48 M/mm3 (3.60-5.2) L 11/08/19 08:30 Hgb 11.7 GM/dL (10.7-15.3) 11/08/19 08:30 Hct 33.4 % (32.4-45.2) 11/08/19 08:30 MCV 96.0 fl (80-96) 11/08/19 08:30 MCH 33.6 pg (25.7-33.7) 11/08/19 08:30 MCHC 35.0 g/dl (32.0-36.0) 11/08/19 08:30 RDW 12.5 % (11.6-15.6) 11/08/19 08:30 Plt Count 236 K/MM3 (134-434) 11/08/19 08:30 MPV 7.9 fl (7.5-11.1) 11/08/19 08:30 Sodium 143 mmol/L (136-145) 11/08/19 08:30 Potassium 4.2 mmol/L (3.5-5.1) 11/08/19 08:30 Chloride 109 mmol/L (98-107) H 11/08/19 08:30 Carbon Dioxide 29 mmol/L (21-32) 11/08/19 08:30 Anion Gap 5 MMOL/L (8-16) L 11/08/19 08:30 BUN 8.6 mg/dL (7-18) 11/08/19 08:30 Creatinine 0.6 mg/dL (0.55-1.3) 11/08/19 08:30 Est GFR (CKD-EPI)AfAm 140.77 11/08/19 08:30 Est GFR (CKD-EPI)NonAf 121.46 11/08/19 08:30 Random Glucose 80 mg/dL (74-106) 11/08/19 08:30 Calcium 9.0 mg/dL (8.5-10.1) 11/08/19 08:30 Total Bilirubin 0.5 mg/dL (0.2-1) 11/08/19 08:30 AST 12 U/L (15-37) L 11/08/19 08:30 ALT 25 U/L (13-61) 11/08/19 08:30 Alkaline Phosphatase 68 U/L (45-117) 11/08/19 08:30 Total Protein 6.1 g/dl (6.4-8.2) L 11/08/19 08:30 Albumin 3.3 g/dl (3.4-5.0) L 11/08/19 08:30 POC Urine HCG, Qual Negative 11/07/19 18:55 RPR Titer Nonreactive (NONREACTIVE) 11/08/19 08:30 Labs noted. Pertinent Admission Physical Exam Findings: withdrawal symptoms. - Treatment Hospital Course: Detox Protocol Followed, Detoxed Safely - Medication Discharge Medications: Ambulatory Orders NK [No Known Home Medication] 11/07/19 - Diagnosis (1) Cannabis dependence Current Visit: Yes Status: Chronic (2) Cocaine abuse Current Visit: Yes Status: Chronic (3) Heroin dependence Current Visit: No Status: Acute (4) Knee injury Current Visit: No Status: Acute Qualifiers: Encounter type: initial encounter Laterality: left Qualified Code(s): S89.92XA - Unspecified injury of left lower leg, initial encounter (5) Opiate use Current Visit: No Status: Chronic (6) Opioid dependence with withdrawal Current Visit: Yes Status: Acute - AMA Did Patient Leave Against Medical Advice: Yes
[2019-11-09] MEDS: METHOCARBAMOL 500 MG TABLET PO PRN (17:21)
[2019-11-09] MEDS ORDERED: hydrOXYzine PAMOATE 25 MG CAPSULE (FP) PO PRN (17:23)
--- NOTE | 2019-11-09 17:23 | PN ---
BHS Progress Note Note: pt requesting Vistaril for anxiety . Vital Signs - 24 hr 11/08/19 11/09/19 11/09/19 21:07 03:30 06:57 Temperature 97.2 F L 98.2 F Pulse Rate 50 L 69 Respiratory 16 16 16 Rate Blood Pressure 133/78 136/95 11/09/19 11/09/19 08:58 13:29 Temperature 97.6 F 97.6 F Pulse Rate 61 57 L Respiratory 16 16 Rate Blood Pressure 135/92 123/75 P : vistaril added
[2019-11-09] MEDS ORDERED: METHADONE HCL 5 MG TABLET PO ONE (19:54)
--- NOTE | 2019-11-09 19:54 | PN ---
S Progress Note Note: called by nursing for pt c/o not feeling well . pt states she under-reported use of heroin up to 1 bundle/day , states currently w/ chills/ sweating, nausea/ poor appetite, abdominal cramping . Reports she is planning on leaving tomorrow and going to rehab on Monday . does not want to extend taper Vital Signs - 24 hr 11/08/19 11/09/19 11/09/19 21:07 03:30 06:57 Temperature 97.2 F L 98.2 F Pulse Rate 50 L 69 Respiratory 16 16 16 Rate Blood Pressure 133/78 136/95 11/09/19 11/09/19 11/09/19 08:58 13:29 18:53 Temperature 97.6 F 97.6 F 98.0 F Pulse Rate 61 57 L 49 L Respiratory 16 16 17 Rate Blood Pressure 135/92 123/75 127/81 11/09/19 19:34 Temperature Pulse Rate 46 L Respiratory 16 Rate Blood Pressure O : S1 S2 bradycardia resp : CTA b/l P : Methadone 5 mg x once , encouraged p.o. fluids , re-check VS in 1 hr
[2019-11-09] MEDS: MELATONIN 5 MG TABLETS PO PRN (22:49)
[2019-11-09] MEDS: THIAMINE HCL 100 MG TABLET (FP) PO SCH (22:49)
[2019-11-10] MEDS ORDERED: METHADONE HCL 5 MG TABLET (FOR DETOX USE ONLY) PO ONE (06:00)
[2019-11-10 06:38] VITALS: BP 125/81; PULSE 78; TEMP 98.3
--- NOTE | 2019-11-10 09:17 | DS ---
[facility] Detox Discharge Summary Admission Date: 11/07/19 Discharge Date: 11/10/19 - History Present History: Opioid Dependence, Sedative Dependence Additional Comments: 29 years old female admitted on 11/07/19 for opiate withdrawal sx management treated [facility] methadone detox regiment patient has completed methadone regiment and tolerated well alert oriented x 3 respiratory clear lungs bilaterally on auscultation abdomen soft no rebound tenderness skin warm and dry Pertinent Past History: patient has long history of anxiety and nausea yesterday feeling better today appears well rested dress appropriated to place - Physical Exam Results Vital Signs: Vital Signs Temperature 98.3 F 11/10/19 06:37 Pulse Rate 78 11/10/19 06:37 Respiratory Rate 14 11/10/19 06:37 Blood Pressure 125/81 11/10/19 06:37 O2 Sat by Pulse Oximetry (%) Pertinent Admission Physical Exam Findings: opiate withdrawal Laboratory Last Values WBC 4.3 K/mm3 (4.0-10.0) 11/08/19 08:30 RBC 3.48 M/mm3 (3.60-5.2) L 11/08/19 08:30 Hgb 11.7 GM/dL (10.7-15.3) 11/08/19 08:30 Hct 33.4 % (32.4-45.2) 11/08/19 08:30 MCV 96.0 fl (80-96) 11/08/19 08:30 MCH 33.6 pg (25.7-33.7) 11/08/19 08:30 MCHC 35.0 g/dl (32.0-36.0) 11/08/19 08:30 RDW 12.5 % (11.6-15.6) 11/08/19 08:30 Plt Count 236 K/MM3 (134-434) 11/08/19 08:30 MPV 7.9 fl (7.5-11.1) 11/08/19 08:30 Sodium 143 mmol/L (136-145) 11/08/19 08:30 Potassium 4.2 mmol/L (3.5-5.1) 11/08/19 08:30 Chloride 109 mmol/L (98-107) H 11/08/19 08:30 Carbon Dioxide 29 mmol/L (21-32) 11/08/19 08:30 Anion Gap 5 MMOL/L (8-16) L 11/08/19 08:30 BUN 8.6 mg/dL (7-18) 11/08/19 08:30 Creatinine 0.6 mg/dL (0.55-1.3) 11/08/19 08:30 Est GFR (CKD-EPI)AfAm 140.77 11/08/19 08:30 Est GFR (CKD-EPI)NonAf 121.46 11/08/19 08:30 Random Glucose 80 mg/dL (74-106) 11/08/19 08:30 Calcium 9.0 mg/dL (8.5-10.1) 11/08/19 08:30 Total Bilirubin 0.5 mg/dL (0.2-1) 11/08/19 08:30 AST 12 U/L (15-37) L 11/08/19 08:30 ALT 25 U/L (13-61) 11/08/19 08:30 Alkaline Phosphatase 68 U/L (45-117) 11/08/19 08:30 Total Protein 6.1 g/dl (6.4-8.2) L 11/08/19 08:30 Albumin 3.3 g/dl (3.4-5.0) L 11/08/19 08:30 POC Urine HCG, Qual Negative 11/07/19 18:55 RPR Titer Nonreactive (NONREACTIVE) 11/08/19 08:30 lab noted - Treatment Hospital Course: Detox Protocol Followed, Detoxed Safely, Responded well, Discharged Condition Good, Rehab Referral Accepted Patient has Accepted a Rehab Referral to: [facility] - Medication Discharge Medications: Ambulatory Orders NK [No Known Home Medication] 11/07/19 - Diagnosis (1) GERD (gastroesophageal reflux disease) Status: Chronic Qualifiers: Esophagitis presence: without esophagitis Qualified Code(s): K21.9 - Gastro -esophageal reflux disease without esophagitis (2) Opioid dependence with withdrawal Status: Acute (3) Nicotine dependence Status: Acute Qualifiers: Nicotine product type: cigarettes Substance use status: in withdrawal Qualified Code(s): F17.213 - Nicotine dependence, cigarettes, with withdrawal (4) Substance induced mood disorder Status: Suspected - AMA Did Patient Leave Against Medical Advice: No COWS (PN) - Opiate Withdrawal Resting Pulse: 0= [place] 80 or Below Sweatin= No chills or Flushing Restless Observation: 0= Sits Still Pupil Size: 0= Normal to Room Light Bone or Joint Aches: 1= Mild Discomfort Runny Nose/ Eye Tearin= Nasal Congestion GI Upset > 30mins: 0= None Tremor Observation of Outstretched Hands: 0= None Yawning Observation: 1= 1-2x During Session Anxiety or Irritability: 0= None Goose Flesh Skin: 0=Smooth Skin COWS Score: 3
== END 2019-11-10 10:33 | disposition home or self-care (01) | DRG 773 ==
LOC: YASAS 15:58 → Y3N 20:27
PROVIDERS: ADMIT Allergy & Immunology; ATTEND Allergy & Immunology
PROC: HZ2ZZZZ Detoxification Services for Substance Abuse Treatment (ICD-10-PCS; principal; 2019-11-07)
DX: F11.23 Opioid dependence with withdrawal (principal); F13.230 Sedative, hypnotic or anxiolytic dependence with withdrawal, uncomplicated; F14.20 Cocaine dependence, uncomplicated; F12.20 Cannabis dependence, uncomplicated; F17.213 Nicotine dependence, cigarettes, with withdrawal; F19.24 Other psychoactive substance dependence with psychoactive substance-induced mood disorder; F41.9 Anxiety disorder, unspecified; K21.9 Gastro-esophageal reflux disease without esophagitis; Z88.8 Allergy status to other drugs, medicaments and biological substances; Z91.19 Patient's noncompliance with other medical treatment and regimen
CPT/HCPCS: 36415; 80053; 81025; 85027; 86593; 93005; 93010; J0735; Q0162

== ENCOUNTER 2020-04-15 09:56 | Emergency (ER) | payer BC, OTHER ==
[2020-04-15 10:06] VITALS: BP 140/88; PULSE 88; TEMP 98; BMI 19.8
--- NOTE | 2020-04-15 10:09 | PDOC ---
Rapid Medical Evaluation Time Seen by Provider: 04/15/20 10:01 Medical Evaluation: Allergies Allergy/AdvReac Type Severity Reaction Status Date / Time dextromethorphan Hbr Allergy Swelling Verified 11/07/19 17:17 [From NyQuil] doxylamine [From NyQuil] Allergy Swelling Verified 11/07/19 17:17 pseudoephedrine HCl Allergy Swelling Verified 11/07/19 17:17 [From NyQuil] 04/15/20 10:01 I have performed a brief in-person evaluation of this patient. The patient presents with a chief complaint of: H/o bipolar d/o, was on meds but self dced "a long time ago", went to [facility] 2 days ago for "an episode" and was referred to [facility]. [facility] staff at [facility] called her today and states she needs to come to an ER for medical clearance (blood work/drug screen) and then staff to get faxed the results and will call pt later on at home and arrange transfer to their inpt psych facility. [facility] staff does not specifically require covid testing. Admits to PCP and opiod abuse and used recently. No SI/HI Pertinent physical exam findings:stable I have ordered the following:labs The patient will proceed to the ED for further evaluation Discharge Disposition - Diagnosis Medical clearance for psychiatric admission - Referrals - Patient Instructions - Post Discharge Activity
[2020-04-15 11:28] LABS: BASO % 0.5 % (0-2.0); EOS % 0.2 % (0-4.5); HEMATOCRIT 47.2 % (32.4-45.2); HEMOGLOBIN 15.7 GM/dL (10.7-15.3); LYMPH % 20.6 % (8-40); MCH 32.8 pg (25.7-33.7); MCHC 33.4 g/dl (32.0-36.0); MEAN CELL VOLUME 98.3 fl (80-96); MEAN PLT VOLUME 8.4 fl (7.5-11.1); MONO % 5.3 % (3.8-10.2); NEUT % 73.4 % (42.8-82.8); PLATELET COUNT 218 K/MM3 (134-434); RDW 12.8 % (11.6-15.6); WHITE BLOOD COUNT 4.9 K/mm3 (4.0-10.0)
[2020-04-15 11:57] LABS: ALBUMIN 4.4 g/dl (3.4-5.0); BILIRUBIN,TOTAL 1.6 mg/dL (0.2-1); BLOOD UREA NITROGEN 9.6 mg/dL (7-18); CALCIUM 9.8 mg/dL (8.5-10.1); CREATININE 0.7 mg/dL (0.55-1.3); POTASSIUM 4.3 mmol/L (3.5-5.1); TOT PROT 7.7 g/dl (6.4-8.2)
[2020-04-15 12:08] LABS: COCAINE, UR NEGATIVE ng/ml (CUTOFF=300); METHADONE, UR NEGATIVE ng/ml (CUTOFF=300); URINE AMPHETAMINES NEGATIVE ng/ml (CUTOFF=500); URINE BARBITURATES NEGATIVE ng/ml (CUTOFF=200); URINE BENZODIAZEPINES NEGATIVE ng/ml (CUTOFF=200)
[2020-04-15 12:12] LABS: OPIATES, URI POSITIVE ng/ml (CUTOFF=300); PHENCYCLIDINE,URINE POSITIVE ng/ml (CUTOFF=25)
--- NOTE | 2020-04-15 12:21 | PDOC ---
History of Present Illness - General Chief Complaint: Drug Screen Stated Complaint: MED CLEARANCE Time Seen by Provider: 04/15/20 10:01 - History of Present Illness Initial Comments: 04/15/20 16:45 29-year-old female with a past medical history of depression anxiety admits to suicidal ideation over the last few days presents for blood work and urine toxicology screen for admission to psychiatric center [facility]. Past History - Medical History Allergies/Adverse Reactions: Allergies Allergy/AdvReac Type Severity Reaction Status Date / Time dextromethorphan Hbr Allergy Swelling Verified 04/15/20 10:06 [From NyQuil] doxylamine [From NyQuil] Allergy Swelling Verified 04/15/20 10:06 pseudoephedrine HCl Allergy Swelling Verified 04/15/20 10:06 [From NyQuil] Home Medications: Ambulatory Orders NK [No Known Home Medication] 11/07/19 Anemia: No Asthma: No Cardiac Disorders: No CVA: No COPD: No Diabetes: No GI Disorders: No Disorders: No HTN: No Hypercholesterolemia: No Kidney Stones: No Psychiatric Problems: Yes (bi polar) Seizures: No - Surgical History Abdominal Surgery: No Appendectomy: No Cardiac Surgery: No Cholecystectomy: No Lung Surgery: No Neurologic Surgery: No Orthopedic Surgery: Yes (RIGHT HIP SX DUE TO PLAY INJURY IN 1999) - Reproductive History PID: No - Psycho-Social/Smoking History Smoking Status: Yes Smoking History: Current every day smoker Have you smoked in the past 12 months: No Number of Cigarettes Smoked Daily: 10 Information on smoking cessation initiated: No 'Breaking Loose' booklet given: 11/07/19 - Substance Abuse Hx (Audit-C & DAST Scrn) In the last yr the pt used illegal drug/Rx for NonMed reason: Yes Score: Yes response is considered Positive: 1 Screen Result (Positive result requires Nsg. DAST-10): Positive Review of Systems - Review of Systems Psychiatric: Yes: Anxiety, Depression *Physical Exam - Vital Signs Last Vital Signs Temp Pulse Resp BP Pulse Ox 98 F 88 18 140/88 99 04/15/20 10:02 04/15/20 10:02 04/15/20 10:02 04/15/20 10:02 04/15/20 10:02 - Physical Exam 04/15/20 16:46 GENERAL: The patient is awake, alert, and fully oriented, in no acute distress. HEAD: Normal with no signs of trauma. EYES: sclera anicteric, conjunctiva clear. ENT: Ears normal tympanic membranes normal oropharynx clear uvula midline NECK: Normal range of motion LUNGS: Breath sounds equal, clear to auscultation bilaterally. No wheezes, and no crackles. HEART: S1 and S2 without murmur, rub or gallop. ABDOMEN: Soft, nontender, normoactive bowel sounds. No guarding, no rebound. No masses. EXTREMITIES: Normal range of motion, no edema. No clubbing or cyanosis. No cords, erythema, or tenderness. NEUROLOGICAL: Cranial nerves II through XII grossly intact. PSYCH: Depressed mood and affect, quiet nonpressured speech, suicidal ideation no specific plan SKIN: Warm, Dry, normal turgor, no rashes or lesions noted. ED Treatment Course - LABORATORY CBC & Chemistry Diagram: 04/15/20 11:00 04/15/20 11:00 - ADDITIONAL ORDERS Additional order review: Laboratory Results 04/15/20 04/15/20 04/15/20 11:00 11:00 11:00 Sodium 140 Potassium 4.3 Chloride 108 H Carbon Dioxide 25 Anion Gap 8 BUN 9.6 Creatinine 0.7 Est GFR (CKD-EPI)AfAm 133.81 Est GFR (CKD-EPI)NonAf 115.45 Random Glucose 89 Calcium 9.8 Total Bilirubin 1.6 H AST 13 L ALT 19 Alkaline Phosphatase 81 Total Protein 7.7 Albumin 4.4 Salicylates Opiates Screen Positive A* Methadone Screen Negative Acetaminophen --noresult-- Barbiturate Screen Negative Phencyclidine Screen Positive A* Ur Amphetamines Screen Negative MDMA (Ecstasy) Screen Negative Benzodiazepines Screen Negative Cocaine Screen Negative U Marijuana (THC) Screen Positive A* 04/15/20 11:00 Sodium Potassium Chloride Carbon Dioxide Anion Gap BUN Creatinine Est GFR (CKD-EPI)AfAm Est GFR (CKD-EPI)NonAf Random Glucose Calcium Total Bilirubin AST ALT Alkaline Phosphatase Total Protein Albumin Salicylates 3.6 Opiates Screen Methadone Screen Acetaminophen Barbiturate Screen Phencyclidine Screen Ur Amphetamines Screen MDMA (Ecstasy) Screen Benzodiazepines Screen Cocaine Screen U Marijuana (THC) Screen 04/15/20 11:00 RBC 4.80 MCV 98.3 H MCHC 33.4 RDW 12.8 MPV 8.4 Neutrophils % 73.4 D Lymphocytes % 20.6 D Monocytes % 5.3 Eosinophils % 0.2 Basophils % 0.5 Medical Decision Making - Medical Decision Making 04/15/20 12:21 [facility] called 04/15/20 14:03 Laboratory faxed to [facility] for the second time today awaiting approval on admission 04/15/20 14:57 Patient declined by [facility] because of positive drug screen in the urine. Psych consult called. Psychiatry on-call will come evaluate patient in the emergency room. 04/15/20 16:46 Patient was declined psychiatric consult was called, psychiatric consult has been has not been done however on a one-to-one the patient eloped from the emergency room police were notified. Discharge - Discharge Information Problems reviewed: No Clinical Impression/Diagnosis: Medical clearance for psychiatric admission Condition: Critical Disposition: ELOPED - Follow up/Referral - Patient Discharge Instructions - Post Discharge Activity
--- NOTE | 2020-04-15 14:29 | PDOC ---
*Physical Exam - Vital Signs Last Vital Signs Temp Pulse Resp BP Pulse Ox 98 F 88 18 140/88 99 04/15/20 10:02 04/15/20 10:02 04/15/20 10:02 04/15/20 10:02 04/15/20 10:02 - Physical Exam 04/15/20 14:29 The patient was examined by [PRIYANKA Gardiner] under my direct supervision. I personally evaluated the patient. I concur with the above findings and the plan of care. ED Treatment Course - LABORATORY CBC & Chemistry Diagram: 04/15/20 11:00 04/15/20 11:00 - ADDITIONAL ORDERS Additional order review: Laboratory Results 04/15/20 04/15/20 04/15/20 11:00 11:00 11:00 Sodium 140 Potassium 4.3 Chloride 108 H Carbon Dioxide 25 Anion Gap 8 BUN 9.6 Creatinine 0.7 Est GFR (CKD-EPI)AfAm 133.81 Est GFR (CKD-EPI)NonAf 115.45 Random Glucose 89 Calcium 9.8 Total Bilirubin 1.6 H AST 13 L ALT 19 Alkaline Phosphatase 81 Total Protein 7.7 Albumin 4.4 Salicylates Opiates Screen Positive A* Methadone Screen Negative Acetaminophen <2.0 Barbiturate Screen Negative Phencyclidine Screen Positive A* Ur Amphetamines Screen Negative MDMA (Ecstasy) Screen Negative Benzodiazepines Screen Negative Cocaine Screen Negative U Marijuana (THC) Screen Positive A* 04/15/20 11:00 Sodium Potassium Chloride Carbon Dioxide Anion Gap BUN Creatinine Est GFR (CKD-EPI)AfAm Est GFR (CKD-EPI)NonAf Random Glucose Calcium Total Bilirubin AST ALT Alkaline Phosphatase Total Protein Albumin Salicylates 3.6 Opiates Screen Methadone Screen Acetaminophen Barbiturate Screen Phencyclidine Screen Ur Amphetamines Screen MDMA (Ecstasy) Screen Benzodiazepines Screen Cocaine Screen U Marijuana (THC) Screen 04/15/20 11:00 RBC 4.80 MCV 98.3 H MCHC 33.4 RDW 12.8 MPV 8.4 Neutrophils % 73.4 D Lymphocytes % 20.6 D Monocytes % 5.3 Eosinophils % 0.2 Basophils % 0.5 Discharge - Discharge Information Problems reviewed: Yes Clinical Impression/Diagnosis: Medical clearance for psychiatric admission - Follow up/Referral - Patient Discharge Instructions - Post Discharge Activity
[2020-04-15] MEDS ORDERED: ONDANSETRON *ODT* 4 MG TABLET SL ONE (14:33)
--- NOTE | 2020-04-17 13:44 | EKG ---
Test Reason : Blood Pressure : / mmHG Vent. Rate : 070 BPM Atrial Rate : 070 BPM P-R Int : 126 ms QRS Dur : 086 ms QT Int : 410 ms P-R-T Axes : 049 067 069 degrees QTc Int : 442 ms NORMAL SINUS RHYTHM MODERATE VOLTAGE CRITERIA FOR LVH, MAY BE NORMAL VARIANT WHEN COMPARED WITH ECG OF 07-NOV-2019 20:35, NO SIGNIFICANT CHANGE WAS FOUND Confirmed by BAUTISTA ARGUELLES MD ([id number]) on 04/17/2020 1:43:48 PM Referred By: Confirmed By:BAUTISTA ARGUELLES MD
== END 2020-04-15 15:45 | disposition left against medical advice (07) ==
LOC: JER 09:56
DX: R45.851 Suicidal ideations (principal)
CPT/HCPCS: 36415; 80053; 80307; 85025; 93005; 93010; 99283-25

== ENCOUNTER 2020-04-15 17:20 | Emergency (ER) | payer OTHER ==
--- NOTE | 2020-04-15 18:01 | PDOC ---
History of Present Illness - General Chief Complaint: Psychiatric Stated Complaint: psych Time Seen by Provider: 04/15/20 17:59 - History of Present Illness Initial Comments: 04/15/20 18:00 Patient brought back by police from prior elopement when she was suicidal. Past History - Medical History Allergies/Adverse Reactions: Allergies Allergy/AdvReac Type Severity Reaction Status Date / Time dextromethorphan Hbr Allergy Swelling Verified 04/15/20 10:06 [From NyQuil] doxylamine [From NyQuil] Allergy Swelling Verified 04/15/20 10:06 pseudoephedrine HCl Allergy Swelling Verified 04/15/20 10:06 [From NyQuil] Home Medications: Ambulatory Orders NK [No Known Home Medication] 11/07/19 Anemia: No Asthma: No Cardiac Disorders: No CVA: No COPD: No Diabetes: No GI Disorders: No Disorders: No HTN: No Hypercholesterolemia: No Kidney Stones: No Psychiatric Problems: Yes (bi polar) Seizures: No - Surgical History Abdominal Surgery: No Appendectomy: No Cardiac Surgery: No Cholecystectomy: No Lung Surgery: No Neurologic Surgery: No Orthopedic Surgery: Yes (RIGHT HIP SX DUE TO PLAY INJURY IN 1999) - Reproductive History PID: No - Psycho-Social/Smoking History Smoking Status: Yes Smoking History: Current every day smoker Have you smoked in the past 12 months: No Number of Cigarettes Smoked Daily: 10 'Breaking Loose' booklet given: 11/07/19 Review of Systems - Review of Systems Psychiatric: Yes: Depression, Emotional Problems *Physical Exam - Physical Exam General Appearance: Yes: Nourished, Appropriately Dressed. 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 04/15/20 18:40 Psychiatry on-call does not want to come back to the hospital to evaluate the patient until the morning. I have explained this to the patient as well as her mother. Patient's mother would like to speak to her cigar head stringer in order to pursue litigation against myself in the hospital. This is because she has not been discharged. Patient will not be discharged as she is a threat to herself. Patient will be signed out to the main emergency room until psychiatric consultation. 04/28/20 14:26 Patient signed out to the overnight emergency room staff Discharge - Discharge Information Problems reviewed: Yes Clinical Impression/Diagnosis: Suicidal ideations, Intentional self-harm, Opiate use Condition: Improved Disposition: HOME - Follow up/Referral Referrals: [facility] [place] [Provider Group] Jean Claude Muro MD [Staff Physician] - - Patient Discharge Instructions Patient Printed Discharge Instructions: Substance Use Disorder, DI for Depre ssion -- Adult Additional Instructions: You were seen in the ER today for concern of suicidal thoughts or self harm, and have been cleared to return home by psychiatry. Please follow-up with your primary care doctor and psychiatrist within 1-2 days to discuss your visit and make sure your symptoms have improved. Please return to the ER if you have any worsening pain, development of fevers or chills, loss of consciousness, inability to tolerate food or fluids, or any other concerns. PLEASE CALL [phone] OR RETURN TO THE ER IF YOU HAVE ANY THOUGHTS OF HURTING YOURSELF OR OTHERS. - Post Discharge Activity Work/Back to School Note: My Personal Safety Plan
[2020-04-15 19:18] VITALS: BMI 16.1
[2020-04-15] MEDS ORDERED: diazePAM 5 MG TABLET ONE (19:59)
[2020-04-15] MEDS ORDERED: diazePAM 5 MG TABLET PO ONE (20:00)
--- NOTE | 2020-04-16 00:14 | PDOC ---
*Physical Exam - Vital Signs Last Vital Signs Temp Pulse Resp BP Pulse Ox 98.7 F 106 H 20 123/88 100 04/15/20 17:30 04/15/20 17:30 04/15/20 17:30 04/15/20 17:30 04/15/20 17:30 - Physical Exam 04/16/20 00:15 29 year old woman in the ER for suicidal ideation overnight eval, patient sleeping comfortably, no agitation, no resp distress, comfortable appearing Patient is awake and requests benadryl to sleep , she state that she has taken it before Benadryl doses 04/16/20 03:12 Mother called to inform that when the patient had eloped during the day shift, she went home and took her suboxone ED Treatment Course - Medications Given in the ED: ED Medications Discontinued Medications Generic Name Dose Route Start Last Admin Trade Name Altaf PRN Reason Stop Dose Admin Diazepam 5 mg 04/15/20 20:00 04/15/20 20:02 Valium - PO 04/15/20 20:01 5 mg ONCE ONE Administration Discharge - Discharge Information Problems reviewed: Yes Clinical Impression/Diagnosis: Suicidal ideations, Intentional self-harm, Opiate use Condition: Improved Disposition: HOME - Follow up/Referral Referrals: [facility] [place] [Provider Group] Jean Claude Muro MD [Staff Physician] - - Patient Discharge Instructions Patient Printed Discharge Instructions: Substance Use Disorder, DI for Depression -- Adult Additional Instructions: You were seen in the ER today for concern of suicidal thoughts or self harm, and have been cleared to return home by psychiatry. Please follow-up with your primary care doctor and psychiatrist within 1-2 days to discuss your visit and make sure your symptoms have improved. Please return to the ER if you have any worsening pain, development of fevers or chills, loss of consciousness, inability to tolerate food or fluids, or any other concerns. PLEASE CALL 9--1 OR RETURN TO THE ER IF YOU HAVE ANY THOUGHTS OF HURTING YOURSELF OR OTHERS. - Post Discharge Activity Work/Back to School Note: My Personal Safety Plan
[2020-04-16 07:12] VITALS: TEMP 98.2
--- NOTE | 2020-04-16 07:40 | PDOC ---
*Physical Exam - Vital Signs Last Vital Signs Temp Pulse Resp BP Pulse Ox 98.2 F 91 H 16 108/72 100 04/16/20 05:41 04/16/20 05:41 04/16/20 05:41 04/16/20 05:41 04/16/20 05:41 ED Treatment Course - Medications Given in the ED: ED Medications Discontinued Medications Generic Name Dose Route Start Last Admin Trade Name Altaf PRN Reason Stop Dose Admin Diazepam 5 mg 04/15/20 20:00 04/15/20 20:02 Valium - PO 04/15/20 20:01 5 mg ONCE ONE Administration Diphenhydramine HCl 50 mg 04/16/20 01:32 04/16/20 02:05 Benadryl Injection - IM 04/16/20 01:33 50 mg ONCE ONE Administration Medical Decision Making - Medical Decision Making Pt was signed out to me by resident Dr. Fiore, who explained the presentation, ED course, any pending results, and needed interventions. Pending results include Psychiatry consultation. Pt is currently stable and is lying comfortably. Pt received 50 mg benadryl overnight for sleeping with no further issues. 04/16/20 07:40 Dr. Muro called. Left a voicemail on cell. 04/16/20 08:03 Seen by psychiatry (Dr. Muro), cleared from psych standpoint. Pt medically cleared at this point. Would like to go to detox/grief care outpatient. Pt safe for d/c to home with PCP and Psych f/u. Strict return precautions provided with pt understanding. 04/16/20 11:17 Discharge - Discharge Information Problems reviewed: Yes Clinical Impression/Diagnosis: Suicidal ideations, Intentional self-harm, Opiate use Condition: Improved Disposition: HOME - Admission No - Follow up/Referral Referrals: Jean Claude Muro MD [Staff Physician] - [facility] [place] [Provider Group] - Patient Discharge Instructions Patient Printed Discharge Instructions: Substance Use Disorder, DI for Depression -- Adult Additional Instructions: You were seen in the ER today for concern of suicidal thoughts or self harm, and have been cleared to return home by psychiatry. Please follow-up with your primary care doctor and psychiatrist within 1-2 days to discuss your visit and make sure your symptoms have improved. Please return to the ER if you have any worsening pain, development of fevers or chills, loss of consciousness, inability to tolerate food or fluids, or any other concerns. PLEASE CALL 9--1 OR RETURN TO THE ER IF YOU HAVE ANY THOUGHTS OF HURTING YOURSELF OR OTHERS. - Post Discharge Activity
[2020-04-16 10:04] VITALS: BP 129/82; PULSE 75
--- NOTE | 2020-04-16 11:13 | CON.PSY ---
Psychiatry Consult Chief Complaint: 89 paresh old female with a [id number] of Substance abuse but has been sdtable and on Suboxone maintanance seen for Psych eval. patient reports that she came for Blood Work before she could go to [email or web address] for treatment for anxiety and grief... Lost her Grand Jessica to COVID 19 in the month of February.. Patient denies that she felt opr reported being suicidal.. No previous attempts. No psych admissions either.. Symptoms: reports: Anxiety - Previous Psychiatric Treatment Outpatient: None Inpatient: None - Previous Substance Abuse Treatment Outpatient: Less than 6 mos ago Inpatient: 2 or more prior admissions - Reason for Previous Treatment Reason for Previous Treatment: Heroin or Other Narcotics - Allergies Allergies: Allergies Allergy/AdvReac Type Severity Reaction Status Date / Time dextromethorphan Hbr Allergy Swelling Verified 04/15/20 10:06 [From NyQuil] doxylamine [From NyQuil] Allergy Swelling Verified 04/15/20 10:06 pseudoephedrine HCl Allergy Swelling Verified 04/15/20 10:06 [From NyQuil] - Current Living Status Usual Living Arrangement: With Parent - Current Mental Status Evaluation Appearance: Well Groomed Attitude: Cooperative - Affect Affect: Full Range Appropriateness: Appropriate to Content - Mood Mood: Euthymic - Speech/Language Expressive: Coherent - Psychomotor Activity Psychomotor Activity: Normal - Thought Process Thought Process: Intact - Thought Content Hallucinations: Absent Type: Visual Delusions: Absent - Self Perception Self Perception: No Impairment - Cognition Attention: Alert Orientation: Time Memory, Immediate Recall: Intact Memory, Short Term: 3/3 Memory, Remote with Promptin/3 - Concentration Serial Sevens Intact: Yes Simple Calculations Intact: Yes - Abstraction Proverb Interpretation: Intact Judgement: Intact - Insight Insight: Intact - Impulse Control Impulse Control: Good Control - Suicidal Ideation Suicidal Ideation: No - Homicidal Ideation Homicidal Ideation: No Assessment/Plan 1) Patient is NOT suicidal at this time. 2) Discharge from ER when Medically stable.. 3) will seen herTherapist at [facility].
== END 2020-04-16 11:40 | disposition home or self-care (01) ==
LOC: JER 17:20
PROC: 3E023GC Introduction of Other Therapeutic Substance into Muscle, Percutaneous Approach (ICD-10-PCS; principal; 2020-04-16)
DX: R45.851 Suicidal ideations (principal)
CPT/HCPCS: 99284-25

== ENCOUNTER 2021-07-20 09:06 | Emergency (ER) | payer OTHER ==
[2021-07-20 09:21] VITALS: BP 118/78; PULSE 72; TEMP 98; BMI 25.8
[2021-07-20] MEDS ORDERED: ACETAMINOPHEN 325 MG TABLET (FP) PO ONE (10:37)
[2021-07-20] MEDS ORDERED: ACETAMINOPHEN 325 MG TABLET (FP) ONE (10:50)
[2021-07-20 11:39] LABS: BASO % 0.3 % (0-2.0); EOS % 1.1 % (0-4.5); HEMATOCRIT 39.1 % (32.4-45.2); HEMOGLOBIN 13.5 GM/dL (10.7-15.3); LYMPH % 39.2 % (8-40); MCH 32.2 pg (25.7-33.7); MCHC 34.6 g/dl (32.0-36.0); MEAN CELL VOLUME 93.1 fl (80-96); MEAN PLT VOLUME 7.9 fl (7.5-11.1); MONO % 8.7 % (3.8-10.2); NEUT % 50.7 % (42.8-82.8); PLATELET COUNT 238 10^3/uL (134-434); RDW 13.3 % (11.6-15.6); WHITE BLOOD COUNT 4.4 K/mm3 (4.0-10.0)
[2021-07-20 12:09] LABS: PH,URINE 6.5 (5.0-8.0); URINE APPEARANCE CLEAR; URINE BILIRUBIN NEGATIVE (NEGATIVE); URINE COLOR YELLOW; URINE GLUCOSE (UA) NEGATIVE (NEGATIVE); URINE KETONE NEGATIVE (NEGATIVE); URINE LEUK ESTERASE NEGATIVE (NEGATIVE); URINE NITRITE NEGATIVE (NEGATIVE); URINE PROTEIN NEGATIVE (NEGATIVE)
[2021-07-20 12:13] LABS: HCG,QUALITATIVE URINE Negative
[2021-07-20 12:47] LABS: CALCIUM 8.7 mg/dL (8.5-10.1)
[2021-07-20 12:48] LABS: ALBUMIN 3.4 g/dl (3.4-5.0); BLOOD UREA NITROGEN 7.1 mg/dL (7-18)
[2021-07-20 12:51] LABS: CREATININE 0.5 mg/dL (0.55-1.3)
[2021-07-20 12:52] LABS: BILIRUBIN,TOTAL 0.5 mg/dL (0.2-1); TOT PROT 6.8 g/dl (6.4-8.2)
[2021-07-20] MEDS ORDERED: KETOROLAC TROMETHAMINE 30 MG/1 ML VIAL IVPUSH ONE (14:35)
[2021-07-20] MEDS ORDERED: LIDOCAINE 5% TOPICAL PATCH TP ONE (14:35)
[2021-07-20] MEDS ORDERED: KETOROLAC TROMETHAMINE 30 MG/1 ML VIAL ONE (15:06)
[2021-07-20] MEDS ORDERED: LIDOCAINE 5% TOPICAL PATCH ONE (15:06)
== END 2021-07-20 15:40 | disposition home or self-care (01) ==
LOC: JER 09:06
PROC: 3E0333Z Introduction of Anti-inflammatory into Peripheral Vein, Percutaneous Approach (ICD-10-PCS; principal; 2021-07-20)
DX: M25.551 Pain in right hip (principal); V20.5XXA Motorcycle passenger injured in collision with pedestrian or animal in traffic accident, initial encounter; Y92.9 Unspecified place or not applicable
CPT/HCPCS: 36415; 72131-TC; 73110-TC-RT-FY; 73130-TC-RT-FY; 74177-TC; 80053; 81003; 84703; 85025; 87086; 87186; 99284-25; Q9967